=== PATIENT | female | born 1960 | race Caucasian/White ===

== ENCOUNTER 2017-10-23 00:13 | Emergency (ER) | payer OTHER ==
[~2017-10-23] VITALS: Ht 175.3 cm; Wt 90.0 kg
[~2017-10-23 00:13] MED LIST: CLARITHROMYC500 M1 OR; CONTRAVE 8-90 M1 TAB; CRESTOR20 MG; KEFLEX500 MG PO; NORCO1 TA1 PO; PRAVACHOL20 MG PO; PRILOSEC40 MG PO; ROBITUSSIN AC10 ML PO; SYNTHROID175 MCG; SYNTHROID200 MCG; ZITHROMAX500 MG PO
[2017-10-23] MEDS ORDERED: PERCOCET 5/325M1 TAB PO (01:30)
[2017-10-23] MEDS ORDERED: KEFLEX500 M1 PO (01:30)
[2017-10-23 01:43] VITALS: BP 160/79
== END 2017-10-23 01:44 | disposition home or self-care (01) | DRG 605 ==
LOC: ED 00:13
DX: S61.231A Puncture wound without foreign body of left index finger without damage to nail, initial encounter (principal); E07.9 Disorder of thyroid, unspecified; E78.5 Hyperlipidemia, unspecified; E11.9 Type 2 diabetes mellitus without complications; I10 Essential (primary) hypertension; I51.9 Heart disease, unspecified; W26.0XXA Contact with knife, initial encounter

== ENCOUNTER 2018-03-08 12:24 | Emergency (ER) | payer OTHER ==
[~2018-03-08] VITALS: Ht 175.3 cm; Wt 90.0 kg
[~2018-03-08 12:24] MED LIST changes: +KEFLEX500 M1 PO; +PERCOCET 5/325M1 TAB PO; -PRAVACHOL20 MG PO; +PRAVACHOL80 MG PO; -SYNTHROID175 MCG; +SYNTHROID175 MCG PO
[2018-03-08 13:19] LABS: HEMATOCRIT 40.4 % (37.0-47.0); HEMOGLOBIN 13.4 g/dl (12.0-16.0); IMMATURE GRANULOCYTES 0.4 % (0.0-1.0); MEAN CELL VOLUME 92.9 fL CALC (80.0-100.0); MEAN CORPUSCULAR HGB 30.8 pG CALC (26.0-32.0); MEAN CORPUSCULAR HGB CONC 33.2 g/L CALC (32.0-36.0); NEUT# 7.76 thou/uL (2.00-7.15); RED BLOOD COUNT 4.35 mill/uL (4.20-5.60); RED CELL DISTRI WIDTH 13.6 % (11.5-15.5)
[2018-03-08 13:32] LABS: ALBUMIN 4.4 g/dL (3.2-5.0); ALKALINE PHOSPHATASE 47 u/l (38-126); AMYLASE 44 u/l (30-110); ANION GAP 15 (6-22 (CALC)); BILIRUBIN, TOTAL 0.5 mg/dL (0.0-1.4); BUN 17 mg/dL (7-17); BUN/CREATININE RATIO 27 (12-20 (CALC)); CARBON DIOXIDE 27 mmol/l (22-30); CHLORIDE 102 mmol/l (95-108); CREATININE 0.6 mg/dL (0.5-1.0); GFR > 60 ML/MIN (>=60 (CALC)); GFR FOR AFR.AMER. > 60 ML/MIN (>=60 (CALC)); LIPASE 57 u/l (23-300); SGPT/ALT 131 u/l (9-52); SODIUM 141 mmol/l (137-146); TOTAL PROTEIN 7.8 g/dL (6.3-8.2)
[2018-03-08 13:34] LABS: SGOT/AST 188 u/l (14-36)
[2018-03-08] MEDS ORDERED: ZOLOFT50 MG PO (13:39)
[2018-03-08 13:44] LABS: MYOGLOBIN 29 ng/mL (0 - 62)
[2018-03-08 14:58] LABS: URINE BILIRUBIN - DIPSTICK NEGATIVE (NEGATIVE); URINE BLOOD DIPSTICK NEGATIVE (NEGATIVE); URINE COLOR YELLOW; URINE GLUCOSE - DIPSTICK NEGATIVE (NEGATIVE); URINE KETONE NEGATIVE (NEGATIVE); URINE LEUK ESTERASE NEGATIVE (NEGATIVE); URINE NITRITE - DIPSTICK NEGATIVE (Negative); URINE PROTEIN - DIPSTICK NEGATIVE (NEG-TRACE); URINE UROBILINOGEN - DIPSTICK 0.2 E.U./dL (0.2)
[2018-03-08 15:07] LABS: URINE CLARITY CLEAR
[2018-03-08 16:21] VITALS: BP 163/71
== END 2018-03-08 16:22 | disposition home or self-care (01) | DRG 392 ==
LOC: ED 12:24
PROVIDERS: Emergency Medicine
DX: K29.70 Gastritis, unspecified, without bleeding (principal); M79.1 Myalgia; R74.8 Abnormal levels of other serum enzymes; E07.9 Disorder of thyroid, unspecified; E78.5 Hyperlipidemia, unspecified
CPT/HCPCS: Q9967